=== PATIENT | male | born 2000 | race Asian ===

== ENCOUNTER → 2020-07-19 12:36 | Outpatient (CLI) | payer OTHER, SELFPAY ==
--- NOTE | ~2020-07-19 | MR_ITS ---
EXAMINATION: MR brain IAC wo/w con EXAM DATE: 07/19/2020 14:12 INDICATION: Right-sided ear tinnitus since September. TECHNIQUE: Multi-sequential, multiplanar MR images of the brain, brainstem, internal auditory canals were obtained without contrast. Whole brain sagittal T1, axial diffusion, gradient echo (T2*), T1, T 2, FLAIR sequences obtained. High resolution coronal 3-D FIESTA, coronal T1 FSE, axial T1 FSPGR of t he internal auditory canals. Patient was then injected with 15 cc Multihance contrast intravenously. Postcontrast axial and coronal T1 weighted whole brain, axial and coronal high resolution T1 IAC seq uences obtained. There is no prior study for comparison. FINDINGS: No evidence of mastoid or middle ear opacification. The 7th/8th cranial nerve complexes a re symmetric, normal in course and caliber. No cerebellopontine angle masses. Posterior fossa unrem arkable. There are no areas of restricted diffusion to suggest acute infarction. There is no acute hemorrhage seen on the T2*, a hemosiderin sensitive sequence. No intraparenchymal brain mass. The ventricles a re normal in size. There are no extra-axial collections. Flow voids are seen in the cerebral arteri es on the T2-weighted sequences consistent with their expected patency. The orbits are unremarkable. Soft tissue is unremarkable. There are no areas of abnormal enhancement on the postcontrast image s. IMPRESSION: 1. Unremarkable brain/IAC MRI examination. Reviewed, dictated and finalized at location B. T DESK PERSON
[2020-07-19 13:41] LABS: Estimated Glomerular Filt Rate > 60
== END ==
PROVIDERS: PCP Family Medicine; Visit Provider Family Medicine
DX: H93.19 Tinnitus, unspecified ear (principal)
CPT/HCPCS: 70553; A9577

== ENCOUNTER → 2021-05-02 16:17 | Outpatient (CLI) | payer OTHER, SELFPAY ==
--- NOTE | ~2021-05-02 | XR_ITS ---
XR lumbar spine 2-3V DATE: 05/02/2021 16:33 INDICATION: Low back pain TECHNIQUE: AP, lateral, coned lateral lumbosacral views COMPARISON: None FINDINGS: There is minimal levoscoliosis of the lumbar spine. Normal alignment. No fracture or bone destruction. The included lower thoracic and lumbar pedicles ar e intact. Lumbar and lumbosacral interspaces are relatively preserved. No spondylolisthesis. The sacr al iliac joints are normal. IMPRESSION: Minimal levoscoliosis of lumbar spine; otherwise negative Reviewed, dictated and finalized at location B.
== END ==
PROVIDERS: PCP Family Medicine; Visit Provider Nurse Practitioner Family
DX: M54.50 Low back pain, unspecified (principal)
CPT/HCPCS: 72100